=== PATIENT | female | born 1975 | race Caucasian/White ===

== ENCOUNTER 2022-08-20 17:49 | Observation (INO) | payer SELFPAY ==
[2022-08-20] VITALS (10 sets, daily range): BP systolic 84–109; BP diastolic 41–70
--- NOTE | 2022-08-20 17:53 | NUR ---
PT WHEELED TO RM 13 FOR EVALUATION, CONNECTED TO VITALS MONITOR
[2022-08-20 18:59] LABS: BASO% 0.6 % (0-3); EOS% 2.4 % (0-8); HEMATOCRIT 41.4 % (37.0-47.0); HEMOGLOBIN 12.9 g/dl (12.0-16.0); IMMATURE GRANULOCYTES 0.7 % (0.0-5.0); LYMPH% 8.6 % (15-41); MEAN CELL VOLUME 81.2 fL CALC (80.0-100.0); MEAN CORPUSCULAR HGB 25.3 pG CALC (26.0-32.0); MEAN CORPUSCULAR HGB CONC 31.2 g/dL CAL (32.0-36.0); MONO% 3.4 % (2-13); NEUT# 9.12 thou/uL (2.00-7.15); NEUT% 84.3 % (42-76); RED BLOOD COUNT 5.1 mill/uL (4.20-5.60); RED CELL DISTRI WIDTH 16.7 % (11.5-15.5)
--- NOTE | 2022-08-20 19:07 | NUR ---
Reassessment of patient completed. No distress noted.
[2022-08-20 19:13] LABS: PROTHROMBIN TIME 9.5 SECONDS (9.0-12.5)
[2022-08-20 19:28] LABS: ALBUMIN 4.1 g/dL (3.2-5.0); ALKALINE PHOSPHATASE 101 u/l (38-126); ANION GAP 13 (6-22 (CALC)); BILIRUBIN, TOTAL 0.5 mg/dL (0.02-1.3); BUN 21 mg/dL (7-17); BUN/CREATININE RATIO 20 (12-20 (CALC)); CARBON DIOXIDE 25 mmol/l (22-30); CHLORIDE 100 mmol/l (95-108); CREATININE 1.1 mg/dL (0.5-1.0); GFR FOR AFR.AMER. > 60 ML/MIN (>=60 (CALC)); GFR OTHER RACES 53 ML/MIN (>=60 (CALC)); POTASSIUM 4.3 mmol/l (3.5-5.1); SGOT/AST 29 u/l (14-36); SODIUM 134 mmol/l (137-146); TOTAL PROTEIN 7.6 g/dL (6.3-8.2)
--- NOTE | 2022-08-20 20:15 | NUR ---
PATIENT ARRIVED ON FLOOR ACCOMPANIED BY ER STAFF.
[2022-08-20] MEDS ORDERED: LEVOTHYROXIN125 MC1 PO (20:33)
[2022-08-20] MEDS ORDERED: CITALOPRAM20 MG PO (20:33)
[2022-08-20] MEDS ORDERED: DIFLUCAN150 MG PO (20:34)
[2022-08-20] MEDS ORDERED: TRIAM/NYSTAT EX (20:35)
[2022-08-20] MEDS ORDERED: ZESTRIL5 M1 PO (20:35)
[2022-08-20] MEDS ORDERED: ATORVASTATIN CA10 MG PO (20:36)
[2022-08-20] MEDS ORDERED: METFORMIN HCL500 M1 PO (20:37)
[2022-08-20] MEDS ORDERED: TENORMIN25 M1 PO (20:37)
--- NOTE | 2022-08-20 21:15 | NUR ---
Admission Note Report Given to: RN Transported by: Stretcher Transported with: Nurse Patent IV Dietary Aide Cook Location: [facility] [place] ROOM 279
--- NOTE | 2022-08-21 | NUR ---
PATIENT UP TO THE BATHROOM, NO S/S OF VERTIGO.
--- NOTE | 2022-08-21 04:00 | NUR ---
PATIENT RESTING,NO APPARENT DISTRESS, RESPIRATIONS EVEN AND UNLABORED. CALL LIGHT AND BEDSIDE TABLE WITHIN REACH.
[2022-08-21 04:30] VITALS: BP 92/38
[2022-08-21 05:16] LABS: BASO% 0.6 % (0-3); EOS% 4.1 % (0-8); HEMOGLOBIN 11.5 g/dl (12.0-16.0); IMMATURE GRANULOCYTES 0.7 % (0.0-5.0); LYMPH% 16.9 % (15-41); MEAN CELL VOLUME 83.2 fL CALC (80.0-100.0); MEAN CORPUSCULAR HGB 25.2 pG CALC (26.0-32.0); MEAN CORPUSCULAR HGB CONC 30.3 g/dL CAL (32.0-36.0); MONO% 4.8 % (2-13); NEUT# 5.14 thou/uL (2.00-7.15); NEUT% 72.9 % (42-76); RED BLOOD COUNT 4.57 mill/uL (4.20-5.60); RED CELL DISTRI WIDTH 16.8 % (11.5-15.5)
[2022-08-21 05:23] LABS: ALBUMIN 3.5 g/dL (3.2-5.0); ALKALINE PHOSPHATASE 75 u/l (38-126); ANION GAP 10 (6-22 (CALC)); BUN 19 mg/dL (7-17); BUN/CREATININE RATIO 21 (12-20 (CALC)); CARBON DIOXIDE 30 mmol/l (22-30); CHLORIDE 102 mmol/l (95-108); CREATININE 0.9 mg/dL (0.5-1.0); GFR FOR AFR.AMER. > 60 ML/MIN (>=60 (CALC)); GFR OTHER RACES > 60 ML/MIN (>=60 (CALC)); MAGNESIUM 1.7 mg/dL (1.6-2.3); POTASSIUM 4.4 mmol/l (3.5-5.1); SGOT/AST 22 u/l (14-36); SODIUM 137 mmol/l (137-146); TOTAL PROTEIN 6.4 g/dL (6.3-8.2)
[2022-08-21 05:26] LABS: BILIRUBIN, TOTAL 0.2 mg/dL (0.02-1.3)
[2022-08-21 06:43] VITALS: BP 99/53
--- NOTE | 2022-08-21 07:56 | NUR ---
0700 BEDSIDE REPORT RECEIVED FROM ENRIQUETA. PT RESTING IN BED WITH EYES CLOSED, EASILY AROUSED WHEN CALLED BY NAME. PT ALERT AND ORIENTED X4. NO COMPLAINTS VOICED. RESP EVEN AND UNLABORED. PT UPDATED ON PLAN OF CARE. ALL PERSONAL ITEMS WITHIN REACH. SAFETY PRECAUTIONS IN PLACE, CALL ENRIQUEZ WITHIN REACH.
[2022-08-21 09:20] VITALS: BP 110/68
[2022-08-21 09:22] VITALS: BP 92/64
[2022-08-21 09:24] VITALS: BP 105/71
[2022-08-21 10:05] VITALS: BP 103/64
--- NOTE | 2022-08-21 11:30 | NUR ---
0100 DC INSTRUCTIONS EXPLAINED TO PATIENT, PATIENT VERBALIZES UNDERSTANDING AND DENIES QUESTIONS. PT EXPLAINED TO STOP LISINOPRIL AND ATENOLOL AND TO ONLY TAKE ATENOLOL IF HEART RATE IS ABOVE 100, PT VERBALIZES UNDERSTANDING. PT DISCHARGED HOME WITH ALL PERSONAL BELONGINGS VIA @ [id number].
== END 2022-08-21 11:30 | disposition home or self-care (01) | DRG 312 ==
LOC: ED 17:49 → ED-I 20:05 → ED 20:31 → MS2 20:32
PROVIDERS: Nurse Practitioner; ADMIT Internal Medicine; ATTEND Internal Medicine
DX: I95.1 Orthostatic hypotension (principal); R07.9 Chest pain, unspecified; E11.9 Type 2 diabetes mellitus without complications; F41.9 Anxiety disorder, unspecified; E03.9 Hypothyroidism, unspecified; Z87.891 Personal history of nicotine dependence; Z79.84 Long term (current) use of oral hypoglycemic drugs
CPT/HCPCS: G0378

== ENCOUNTER 2022-08-27 19:30 | Emergency (ER) | payer SELFPAY ==
[~2022-08-27] VITALS: Ht 162.6 cm; Wt 84.5 kg
[2022-08-27] VITALS (14 sets, daily range): BP systolic 130–156; BP diastolic 81–90
[~2022-08-27 19:30] MED LIST: ATORVASTATIN CA10 MG PO; CITALOPRAM20 MG PO; DIFLUCAN150 MG PO; LEVOTHYROXIN125 MC1 PO; METFORMIN HCL500 M1 PO; TENORMIN25 M1 PO; TRIAM/NYSTAT EX; ZESTRIL5 M1 PO
[2022-08-27 20:26] LABS: BASO% 0.9 % (0-3); EOS% 2.6 % (0-8); HEMOGLOBIN 11.3 g/dl (12.0-16.0); IMMATURE GRANULOCYTES 0.2 % (0.0-5.0); LYMPH% 13.1 % (15-41); MEAN CELL VOLUME 81.4 fL CALC (80.0-100.0); MEAN CORPUSCULAR HGB 25.6 pG CALC (26.0-32.0); MEAN CORPUSCULAR HGB CONC 31.4 g/dL CAL (32.0-36.0); MONO% 4.9 % (2-13); NEUT# 4.44 thou/uL (2.00-7.15); NEUT% 78.3 % (42-76); RED BLOOD COUNT 4.42 mill/uL (4.20-5.60); RED CELL DISTRI WIDTH 16.8 % (11.5-15.5)
[2022-08-27 20:38] LABS: ALBUMIN 3.9 g/dL (3.2-5.0); ALKALINE PHOSPHATASE 90 u/l (38-126); AMYLASE 54 u/l (30-110); BUN 11 mg/dL (7-17); BUN/CREATININE RATIO 14 (12-20 (CALC)); CARBON DIOXIDE 26 mmol/l (22-30); CHLORIDE 101 mmol/l (95-108); CREATININE 0.8 mg/dL (0.5-1.0); GFR FOR AFR.AMER. > 60 ML/MIN (>=60 (CALC)); GFR OTHER RACES > 60 ML/MIN (>=60 (CALC)); LIPASE 145 u/l (23-300); SGOT/AST 21 u/l (14-36); SODIUM 136 mmol/l (137-146); TOTAL PROTEIN 7.6 g/dL (6.3-8.2)
[2022-08-27 20:46] LABS: ANION GAP 13 (6-22 (CALC)); BILIRUBIN, TOTAL 0.3 mg/dL (0.02-1.3); POTASSIUM 3.5 mmol/l (3.5-5.1)
[2022-08-27] MEDS ORDERED: ONDANSETRON4 MG PO (22:18)
[2022-08-27] MEDS ORDERED: MECLIZINE25 M1 PO (22:18)
== END 2022-08-27 23:07 | disposition home or self-care (01) | DRG 149 ==
LOC: ED 19:30
PROVIDERS: Emergency Medicine
DX: R42 Dizziness and giddiness (principal); R11.10 Vomiting, unspecified; Z20.822 Contact with and (suspected) exposure to COVID-19; E11.9 Type 2 diabetes mellitus without complications; E03.9 Hypothyroidism, unspecified; Z79.84 Long term (current) use of oral hypoglycemic drugs